=== PATIENT | male | born 1950 | race Caucasian/White ===

== ENCOUNTER 2023-07-25 11:32 | Observation (INO) ==
--- NOTE | 2023-07-25 07:30 | History & Physical Report ---
Date of Service July 25, 2023 Assessment & Plan (1) CAD (coronary artery disease): Plan: Patient has known severe multivessel coronary artery disease now with accelerating angina, worsening LV dysfunction. Plan to proceed with left and right heart catheterization. Further recommendations pending findings. History of Present Illness Primary Care Provider: Makenna Paula DO Mr. Aldana is a very pleasant 73-year-old man with a history of multivessel CAD, ischemic cardiomyopathy, prior VT post single-chamber ICD here today for left and right heart catheterization. Patient has had progressive chest pain consistent with prior angina over the preceding weeks to months. Describes limiting shortness of breath/chest pain if attempts to carry anything, gives the [place] Has been taking multiple nitroglycerin a day. Denies new lower extremity edema, orthopnea. Cardiac cath 04/2022: 50% dLMCA, 90% pLAD, 100% mLAD WIRE STITCHER MACHINE with L-L collaterals. 95% ostial LCx, patent proximal LCx stent. 100% pRCA WIRE STITCHER MACHINE. Echo 05/2022: EF 25-30%, moderate-severely dilated. Mild MR. Repeat echo yesterday showed EF 15 to 20% with akinesis of inferoseptum/inferior wall/inferolateral wall. Had mild to moderate MR. Normal estimated RA/PA Allergies Allergy/AdvReac Type Severity Reaction Status Date / Time No Known Allergies Allergy Unverified 03/24/19 11:54 Home Medications Medication Instructions Recorded Confirmed Type aspirin 325 mg tablet 324 mg PO DAILY 03/24/19 03/24/19 History atorvastatin 20 mg tablet (Lipitor) 20 mg PO DAILY 03/24/19 03/24/19 History bupropion HCl 150 mg tablet,12 hr 150 mg PO DAILY 03/24/19 03/24/19 History sustained-release (Wellbutrin SR) metformin 1 tab PO DAILY 03/24/19 03/24/19 History metoprolol succinate 25 mg 25 mg PO DAILY 03/24/19 03/24/19 History tablet,extended release 24 hr (Toprol XL) Past Med/Surg History Medical History ICD (implantable cardioverter-defibrillator), single, in situ CAD (coronary artery disease) Ischemic cardiomyopathy Ventricular tachycardia Social History Smoking Status: Former smoker Hx Alcohol Use: No Hx Substance Use: No 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 Required: No Beliefs That Will Affect Care: None Current Living Situation: Spouse Feels Safe at Home: Yes Review of Systems All systems reviewed & are unremarkable except as noted in HPI & below Physical Exam Physical Exam: General: Comfortable HEENT: Sclerae anicteric Lungs: Clear to auscultation bilaterally, no crackles or wheezes Cardiac: Regular rate and rhythm, 2 out of 6 holosystolic murmur at the apex Vascular: 2+ right radial Abdomen: Soft, nontender Extremities: Well perfused, no peripheral edema Neuro: Nonfocal Psych: Alert orient x3, normal affect and mood ASA Classification ASA ASA3
--- NOTE | 2023-07-25 12:07 | Pre Anesthesia Assessment ---
Date of Service July 25, 2023 Pre Sedation Assessment Cardiovascular + regular rate Respiratory + respiratory effort normal Pre-Sedation Airway Assessment Smoking Status: Former smoker Hx Sleep Apnea: No Hx Difficult Intubation: No Thyromental Distance: > or= 3.5 Finger Breadths Oral Cavity: + Dental Abnormalities Mallampati Class: III ASA: ASA3 Procedure Planning Contraindications for Sedation: none Current Medications Reviewed: Yes Notes The planned sedation has been discussed with the patient. Informed Consent was obtained. I have identified the patient, determined the appropriateness of sedation and have assessed the patient immediately prior to the procedure. All medicine(s) and interventions are by my order.
[2023-07-25] MEDS: fentaNYL citrate PF 100 MCG/2 ML VIAL ONE (13:51)
[2023-07-25] MEDS: HEPARIN (PORCINE) 1000 UNIT/ML 10 ML (CATH LAB USE ONLY) ONE (13:51)
[2023-07-25] MEDS: IODIXANOL (VISIPAQUE) 320 MG/ML 100ML IV ONE (13:52)
[2023-07-25] MEDS: niCARdipine HCL INJ 2.5 MG/ML 10 ML AMP ONE (13:52)
[2023-07-25] MEDS: NITROGLYCERIN/D5W 100MCG/ML 20ML SYR ONE (13:52)
[2023-07-25] MEDS: MIDAZOLAM HCL 1 MG/ML 2ML VIAL ONE (13:52)
--- NOTE | 2023-07-25 13:57 | Post Anesthesia Assessment ---
Date of Service July 25, 2023 Post Sedation Assessment Vital Signs Pulse Resp BP Pulse Ox O2 Del Method 07/25/23 11:53 83 18 173/93 H 98 Room Air Recovery Score Activity: Moves 4 extremities Respiration: Deep Breath/Cough Circulation: +/-20% PreAnes Value Consciousness: Fully Awake Oxygen Saturation: O2 needed for >90% Discharge Sedation Level of Care: Fast Track Phase II Post Sedation Plan On clinical assessment, the patient appears to have tolerated the sedation without complications. Patient is recovering as anticipated. Patient will continue to be monitored by nursing and may be discharged when sed ation discharge criteria are met per below protocol. Upon Completions of procedure up to 15 minutes continue every 5 minute vital signs and the P.A.R. score; then discharge to a Phase I or Fast Track to Phase II per the following guidelines: * Discharge Patient to appropriate Phase II area if PAR is 8 or greater or return to pre- procedure baseline. The post - procedure orders will be as directed. * If PAR score is less than 8 or not return to pre-procedure baseline then patient will follow Phase I monitoring till PAR is reached for Phase II. The Phase I may be done in procedure room or may call to secure a Phase I area. * If naloxone or flumazenil are used for reversal, hold in Phase I for continued monitoring from when last reversal dose was given for a minimum of 60 minutes or longer pending the nurse and/or physician discretion of patient condition before discharge to Phase II. Please call the Sedation Physician to re-evaluate and complete post-note for discharge to Phase II area. Do NOT discharge from procedure sedation or Phase 1 until post- sedation evaluation note is complete by procedure /sedation MD Sedation Discharge Instructions to be given to the patient at discharge to home.
[2023-07-25] MEDS ORDERED: ONDANSETRON INJ 2 MG/ML 2 ML VIAL IV PRN (13:58)
[2023-07-25] MEDS ORDERED: NITROGLYCERIN SL 0.4 MG/TAB TAB SL PRN ×2 (13:58→14:05)
[2023-07-25] MEDS ORDERED: ACETAMINOPHEN 325 MG TAB PO PRN (13:58)
[2023-07-25 14:05] LABS: iSTAT Arterial Blood Gas HCO3 27 meg/L (19-24); iSTAT Arterial Blood Gas pCO2 43 mmHg (35-46); iSTAT Arterial Blood Gas pO2 46 mmHg (80-95); iSTAT Carbon Dioxide 28 mmol/L (24-31); iSTAT Hematocrit 47 % (42-52); iSTAT Potassium 3.3 mmol/L (3.3-5.0); iSTAT Sodium 144 mmol/L (135-144)
[2023-07-25] MEDS ORDERED: GLUCOSE 40% GEL 15 GM TUBE PO PRN (14:09)
[2023-07-25] MEDS ORDERED: DEXTROSE 50% 50 ML SYRINGE IV PRN (14:09)
[2023-07-25] MEDS ORDERED: GLUCOSE 10 TAB/TUBE PO PRN (14:09)
[2023-07-25] MEDS ORDERED: CARBOHYDRATES FOR HYPOGLYCEMIA PO PRN (14:09)
[2023-07-25] MEDS ORDERED: PHARMACY GLYCEMIC MGMT CONSULT PRN (14:09)
[2023-07-25] MEDS ORDERED: GLUCAGON FOR INJ 1 MG VIAL SQ PRN (14:09)
--- NOTE | 2023-07-25 14:15 | Post Operative Brief Note ---
Cardiology Brief Post Op Date of Surgery July 25, 2023 Pre & Post Diagnosis Multivessel CAD, cardiomyopathy Procedure Cardiac catheterization PCI of mid LAD with single JAMES (3.0 x 26 mm [place]) and shockwave intravascular lithotripsy Carpenter Helper Madi Liriano MD Class C Driver Showers Estimated Blood Loss 15 Findings See Below 25% distal left main 80% calcified mid LAD. Distal LAD chronically occluded with faint left to left collaterals. Ramus 80% ostial 100% proximal RCA INSTRUCTOR TECHNICAL TRAINING with faint left-right collaterals. Normal left and right-sided filling pressures. Anesthesia Type RN Sedation Complications none Disposition Disposition: PCU
[2023-07-25] MEDS: SODIUM CHLORIDE 0.9% 1,000 ML IV SCH (15:30)
[2023-07-25 15:50] LABS: iSTAT Arterial Blood Gas HCO3 28 meg/L (19-24); iSTAT Arterial Blood Gas pCO2 44 mmHg (35-46); iSTAT Arterial Blood Gas pH 7.41 (7.35-7.45); iSTAT Arterial Blood Gas pO2 < 32 mmHg (80-95); iSTAT Carbon Dioxide 29 mmol/L (24-31); iSTAT Hematocrit 46 % (42-52); iSTAT Hemoglobin 15.6 g/dl (14.0-18.0); iSTAT Potassium 3.3 mmol/L (3.3-5.0); iSTAT Sodium 143 mmol/L (135-144)
--- NOTE | 2023-07-25 19:30 | Cardiac Catheterization ---
[facility] Data: Margin Trimmer Cardiac Status Clinical evaluation leading to the procedure CAD Presenation: Unstable angina Anginal Classification: CCS III Diagnostic Physicians Name: Madi Liriano MD Closure Device Recommendations: PCI without planned CABG Cardiac Cath Procedure Full Procedure Date July 25, 2023 Pre-Procedure Diagnosis Pre-Procedure Diagnosis: CAD and Cardiomyopathy AUC Score AUC Score: 7 Post-Procedure Diagnosis Post-Procedure Diagnosis: Severe CAD, Successful PCI and Normal Intracardiac Pressures Procedure(s) Performed Procedure(s) Performed: Coronary Angiography, Left Heart Cath, Right Heart Cath and Drug Eluting Stent Synthetic Soil Blocks Pulper Madi Liriano MD Finish Remover(s) Showers Estimated Blood Loss Estimated Blood Loss: 20 Medication(s) Medication(s): Fentanyl, Heparin, Lidocaine 1%, Nicardipine, Nitroglycerin and Versed Summary of Findings Indication: Accelerating angina, worsened LV dysfunction. History of multivessel CAD Access: 6 Fr right radial artery Catheters: 6 Fr right radial artery, 6 Fr right antecubital vein Findings: LM -medium caliber, 20 to 30% distal stenosis LAD -medium caliber, heavily calcified, 40% proximal stenosis, 80 to 90% mid segment stenosis. 100% distal chronic total occlusion at takeoff of small D3. Apical vessel fills partially via left to left collaterals. Medium high D1 with 80% ostial stenosis. Bifurcating D2 with severe mid segment. Circumflex -small caliber, 50% ostial RCA -100% proximal chronic total occlusion. Right PLB fills retrograde via left to right collaterals from circumflex RA 5 RV 24/6 PA 22/13 (15) PAWP 6 LVEDP 18 PaSat 51% AoSat 82% Omar CO/CI 4.5/2.3 Thermo CO/CI 3.4/1.7 -- PCI -- Antithrombotic therapy: Heparin, clopidogrel Procedure: Left main cannulated with EBU 3.5 guide Pre-procedure flow ALFREDA 3 BMW wire passed across lesion into distal vessel Mid LAD lesion predilated with 2.5 compliant balloon Mid LAD further expanded with shockwave intravascular lithotripsy (3.0 balloon, 60 pulses) Dilated lesion stented with 3.0 x 26 mm Raymond drug-eluting stent Stent post-dilated with stent balloon IC vasodilators administered for spasm Post procedure ALFREDA 3 flow, stent well expanded with minimal residual stenosis and no apparent cardiac complications. Arterial Closure: TR band Summary: 1. Severe multivessel coronary artery disease -80 to 90% mid LAD. 100% distal LAD DRY CLIPPER TENDER. 80% ostial D1 50% ostial circumflex 100% proximal RCA DRY CLIPPER TENDER 25% distal LMCA 2. Normal left and right-sided filling pressures 3. Preserved cardiac output 4. Normal pulmonary artery pressure 5. Successful PCI of mid LAD with with intravascular lithotripsy and single drug-eluting stent (3.0 x 26 mm David). Recommendations: To PCU for continued monitoring Continue long-term DAPT with aspirin, ticagrelor Optimize GDMT for ischemic cardiomyopathy New LBBB on ECG, TERRAPIN FISHER discussed with Dr. Calderon Hemodynamics Rest Ao:: 117/65/97 Final Ao: 123/69/91 LV: 117/18 Recommendations Recommendations: PCI without planned CABG Specimens Specimens: None Radiation Exposure (mGy) 2506 Contrast (mls) 120 Anesthesia Moderate [id number] Procedural Complication(s) None Disposition PCU I attest to the content of the Intraoperative Record and any orders documented therein. Any exceptions are noted below. [facility] Card Cath Procedure Codes Cardiac Catheterization Procedure 1: Cardiovascular Cath Procedures: 41373 Coronaries & LHC (+/-LV) & RHC Moderate Sedation Procedure 1: Sedation/Anesthesia: 34107 Mod Sedation by the same physician;Init15 Min Child Age 5 & Up Procedure 2: Sedation/Anesthesia: 68094 Mod Sedation by the same physician; Ea [id number] Minutes Stenting Procedure 1: Cardiovascular Stent Procedures: 79607 Perc transcatheter placement of intracoronary stent(s), with ang PG Care Time/CCT Total # of Minutes Spent Total Time Spent with Patient: Total time spent is greater than 50% in coordination of care (as documented) at patient's floor/unit and/or counseling patient:
[2023-07-25] MEDS: INSULIN ASPART PER UNIT CHARGE SC SCH (19:35)
[2023-07-25] MEDS: LANTUS PER UNIT CHARGE SC SCH (22:14)
[2023-07-25] MEDS: TICAGRELOR 90 MG TAB PO SCH (23:00)
--- NOTE | 2023-07-26 05:43 | Electrocardiogram Report ---
Test Reason : Blood Pressure : / mmHG Vent. Rate : 082 BPM Atrial Rate : 082 BPM P-R Int : 212 ms QRS Dur : 196 ms QT Int : 488 ms P-R-T Axes : 070 -23 195 degrees QTc Int : 570 ms Sinus rhythm with 1st degree A-V block Left bundle branch block Abnormal ECG No previous ECGs available Confirmed by Bryson Beltran ([id number]) on 07/26/2023 5:43:11 AM Referred By: Ananth Calderon Confirmed By:Bryson Beltran
--- NOTE | 2023-07-26 05:44 | Electrocardiogram Report ---
Test Reason : Blood Pressure : / mmHG Vent. Rate : 070 BPM Atrial Rate : 070 BPM P-R Int : 208 ms QRS Dur : 206 ms QT Int : 518 ms P-R-T Axes : 037 -25 167 degrees QTc Int : 559 ms Sinus rhythm with 1st degree A-V block Left bundle branch block Abnormal ECG When compared with ECG of 25-JUL-2023 12:04, No significant change was found Confirmed by Bryson Beltran ([id number]) on 07/26/2023 5:43:58 AM Referred By: Ananth Calderon Confirmed By:Bryson Beltran
[2023-07-26 08:15] LABS: Basophils # (auto) 0.08 K/uL (0.00-0.20); Basophils % (auto) 0.9 %; Eosinophils % (auto) 5.5 %; Hematocrit (blood only) 46.5 % (42.0-52.0); Hemoglobin 14.8 g/dl (14.0-18.0); Immature Granulocytes # (auto) 0.03 K/uL (0.01-0.20); Immature Granulocytes % (auto) 0.3 %; Lymphocytes # (auto) 1.45 K/uL (1.20-3.40); Mean Corpuscular Hemoglobin 29.2 pg (25.0-34.0); Mean Corpuscular Hgb Conc 31.8 g/dL (32.0-36.0); Mean Corpuscular Volume 91.7 fL (80.0-100.0); Mean Platelet Volume 11.3 fL (9.4-12.4); Monocytes # (auto) 0.87 K/uL (0.11-0.59); Monocytes % (auto) 9.6 %; Neutrophils # (auto) 6.16 K/uL (1.40-6.50); Neutrophils % (auto) 67.7 %; Platelet Count 219 K/uL (130-400); RDW Coefficient of Variation 14.4 % (11.5-14.5); RDW Standard Deviation 47.8 fL (36.4-46.3); Red Blood Count 5.07 M/uL (4.70-6.10); White Blood Count 9.09 K/ul (4.8-10.8)
[2023-07-26 08:30] LABS: BUN Creatinine Ratio 17.9 (10-20); Calcium 9.2 mg/dl (8.6-10.3); Creatinine Clr Calc Pharmacy 52.7 ml/min; Est GFR (African American) 60.1 ml/min; Est GFR (Non-African American) 51.8 ml/min; Potassium 3.6 mmol/L (3.5-5.1)
[2023-07-26] MEDS ORDERED: METOPROLOL SUCC 50MG EXT REL TAB PO SCH (09:00)
[2023-07-26] MEDS ORDERED: METOPROLOL SUCC 25MG EXT REL TAB PO SCH (09:00)
[2023-07-26] MEDS ORDERED: EMPAGLIFLOZIN 25 MG TAB PO SCH (09:00)
[2023-07-26] MEDS: CHOLECALCIFEROL 25 MCG (1000 UNITS) TAB PO SCH (09:18)
[2023-07-26] MEDS: ATORVASTATIN 40 MG TAB PO SCH (09:18)
[2023-07-26] MEDS: carvediloL 3.125 MG TAB PO SCH (09:18)
[2023-07-26] MEDS: ASPIRIN 81 MG CHEW PO SCH (09:22)
[2023-07-26] MEDS: LACTATED RINGER'S 1,000 ML IV SCH (09:32)
--- NOTE | 2023-07-26 10:46 | Pharmacy Report ---
Pharmacy Glycemic Short Note 2 - Date of Service July 26, 2023 - Glycemic Short BSG Results (Last 24 hours): 07/25/23 07/25/23 07/26/23 16:33 20:12 06:59 Glucose 118 H POC Glucose 141 H 134 H 07/26/23 07:17 Glucose POC Glucose 118 H OUTPATIENT ANTIDIABETIC REGIMEN: * Jardiance 25 mg daily, aspart 20 units bid, glargine 20 units bid ASSESSMENT: * 73 year old admitted with progressive chest pain. S/p slabber light yesterday for right heart catheterization. Pharmacy consulted for glycemic management. Patient NPO this AM for EP lab. Received total of 12 units of insulin yesterday, of which 10 units were basal insulin * Fasting BSG 118 mg/dL - reasonable to hold AM basal for NPO status, will resume basal at HS with scale as likely diet will be resumed later today PLAN FOR INPATIENT GLYCEMIC CONTROL: * Hold outpatient oral diabetes medications * Basal insulin * Lantus 10-15 units hs * Bolus insulin * NovoLog per scale ACHS or Q6hrs while NPO * Goal Range: Low 110 mg/dL - High 140 mg/dL * Correction Factor: 30 mg/dL/unit * Nutritional / Prandial insulin per carb ratio of 1 unit per 10 grams CHO consumed
--- NOTE | 2023-07-26 11:14 | Cardiology Progress Note ---
Date of Service July 26, 2023 Assessment & Plan (1) ICD (implantable cardioverter-defibrillator), single, in situ: (2) CAD (coronary artery disease): (3) Ischemic cardiomyopathy: Plan 1. Single-chamber ICD: His ICD was interrogated last evening, he has had no significant ventricular arrhythmia and required no recent therapy. Several very brief episodes of atrial fibrillation were identified. The pacing threshold is acceptable although gradually rising. 2. Coronary disease: He does have severe coronary disease, hopefully the vessel that was dilated yesterday was the culprit for his increased angina recently. He has not been active enough to tell at this point. 3. Ischemic cardiomyopathy: His left ventricular function is severely reduced, I am hopeful that it is not all an ischemic cardiomyopathy and some of it is nonischemic related to his left bundle branch block. We will plan upgrade of his single-chamber ICD to a biventricular ICD today, that will entail adding an atrial and left ventricular lead and using his current ICD lead. I will check his electrical characteristics during surgery but I am reluctant to add another ICD lead even though the pacing threshold is increased slightly.. I reviewed the indications, procedure, risks and alternatives with the patient, and answered all questions. He understands and agrees to the procedure. Consent obtained. I also reviewed the risks and use of sedation, he understands and consent obtained. Admission and Anticipated Discharge Date Admission Date: July 25, 2023 Subjective He is feeling very well since his catheterization yesterday, he has not been very active but feels that his symptoms have improved somewhat even at rest. He has no discomfort at his right wrist catheterization site. He has had no chest discomfort. Physical Exam Physical Exam: Constitutional: Alert, cooperative and in no distress. HEENT: Unremarkable Neck: No jugular venous distention, carotid pulses are normal and equal bilaterally without bruits. Pulmonary: Clear to auscultation bilaterally. Cardiac: Regular rhythm with no murmur, gallop or rub. Abdomen: Soft, nontender with normal bowel sounds. Extremities: No edema. Distal pulses intact. His right wrist catheterization site is slightly ecchymotic but with good pulses and no swelling. Neurologic: No focal findings. Gait is steady. Skin: No rash, ecchymoses or petechiae. Results & Data Vital Signs (Past 12 Hours) Vital Signs Temp Pulse Pulse Resp BP Pulse Ox O2 Del Method 07/26/23 08:00 80 07/26/23 07:13 36.8 C 75 18 121/76 93 Room Air 07/26/23 04:33 94 Room Air 07/26/23 02:32 36.7 C 79 20 125/72 91 Room Air Laboratory Results CBC 07/26/23 Range/Units 06:59 WBC 9.09 (4.8-10.8) K/ul RBC 5.07 (4.70-6.10) M/uL Hgb 14.8 (14.0-18.0) g/dl Hct 46.5 (42.0-52.0) % Plt Count 219 (130-400) K/uL Neut # (Auto) 6.16 (1.40-6.50) K/uL Lymph # (Auto) 1.45 (1.20-3.40) K/uL [place] # (Auto) 0.87 H (0.11-0.59) K/uL Eos # (Auto) 0.50 (0.00-0.50) K/uL Baso # (Auto) 0.08 (0.00-0.20) K/uL Comprehensive Metabolic Panel 07/26/23 Range/Units 06:59 Sodium 141 (136-145) mmol/L Potassium 3.6 (3.5-5.1) mmol/L Chloride 107 (98-107) mmol/L Carbon Dioxide 26 (21-32) mmol/L BUN 24 H (6-23) mg/dl Creatinine 1.34 (0.6-1.4) mg/dl Glucose 118 H (70-99(Fasting)) mg/dl Calcium 9.2 (8.6-10.3) mg/dl Intake and Output 07/25/23 07/26/23 07/26/23 22:59 06:59 14:59 Intake Total 275 / 525 250 / 525 Balance 275 / 525 250 / 525 Intake: IV 250 / 250 Sodium Chloride 0.9% 1,000 ml @ 250 / 250 75 mls/hr IV .[id number] [facility] Rx#: [id number] Oral 275 / 275 PG Care Time/CCT Total # of Minutes Spent Total Time Spent with Patient: Total time spent is greater than 50% in coordination of care (as documented) at patient's floor/unit and/or counseling patient: Coding Level of Care Code 27737 SUB INP/OBS CARE MIN Diagnoses ICD (implantable cardioverter-defibrillator), single, in situ Z95.810 Coronary artery disease involving [place] coronary artery of [place] heart without angina pectoris I25.10 Coronary Disease-Associated Artery/Lesion type: [place] artery [place] vs. transplanted heart: [place] heart Associated angina: without angina Ischemic cardiomyopathy I25.5 (2) CAD (coronary artery disease) Coronary Disease-Associated Artery/Lesion type: [place] artery [place] vs. transplanted heart: [place] heart Associated angina: without angina Qualified Code(s): I25.10 - Atherosclerotic heart disease of [place] coronary artery without angina pectoris
--- NOTE | 2023-07-26 13:07 | Pre Anesthesia Assessment ---
Date of Service July 26, 2023 Pre Sedation Assessment Vital Signs Temp Pulse Pulse Resp BP Pulse Ox O2 Del Method 07/26/23 12:21 70 18 113/69 93 Room Air 07/26/23 11:36 36.6 C 62 18 113/60 94 Room Air 07/26/23 08:00 80 07/26/23 07:13 36.8 C 75 18 121/76 93 Room Air 07/26/23 04:33 94 Room Air 07/26/23 02:32 36.7 C 79 20 125/72 91 Room Air 07/25/23 23:06 36.5 C 80 20 123/78 93 Room Air 07/25/23 22:21 73 07/25/23 19:36 36.6 C 82 20 138/93 96 Room Air 07/25/23 17:31 79 133/85 97 Room Air 07/25/23 17:16 68 114/76 97 Room Air 07/25/23 17:01 78 18 130/85 94 Room Air 07/25/23 16:46 148/90 H 07/25/23 16:32 76 17 117/80 96 Room Air 07/25/23 16:16 70 18 118/74 95 Room Air 07/25/23 15:35 77 20 130/81 95 Room Air 07/25/23 15:20 72 20 128/89 95 Room Air 07/25/23 15:05 71 18 128/79 95 Room Air 07/25/23 14:50 69 18 124/71 95 Room Air 07/25/23 14:35 68 18 128/83 93 Room Air 07/25/23 14:20 71 18 135/79 93 Room Air 07/25/23 14:05 71 18 91/78 L 93 Room Air Cardiovascular RRR, no murmur, no edema Respiratory normal respiratory effort, lungs clear to auscultation Pre-Sedation Airway Assessment Smoking Status: Former smoker Hx Sleep Apnea: No Hx Difficult Intubation: No Short, Thick Neck: No Thyromental Distance: > or= 3.5 Finger Breadths Oral Cavity: + WNL Mallampati Class: III ASA: ASA3 NPO Status Date of Last Intake of Fluids: 07/26/23 Time of Last Intake of Fluids: 08:00 Date of Last Intake of Solid Food: 07/25/23 Time of Last Intake of Solid Foods: 20:00 Procedure Planning Contraindications for Sedation: none Current Medications Reviewed: Yes Notes The planned sedation has been discussed with the patient. Informed Consent was obtained. I have identified the patient, determined the appropriateness of sedation and have assessed the patient immediately prior to the procedure. All medicine(s) and interventions are by my order.
[2023-07-26] MEDS: VANCOMYCIN HCL 1000MG/20ML VIAL ONE (15:30)
[2023-07-26] MEDS: LIDOCAINE 1% LOCAL 20 ML VIAL ONE (15:30)
[2023-07-26] MEDS: ceFAZolin 330 MG/ML 1 GM VIAL ONE (15:30)
[2023-07-26] MEDS: WATER, STERILE FOR INJ 10 ML VIAL ONE (15:31)
[2023-07-26] MEDS: MIDAZOLAM HCL 5 MG/ML 1 ML VIAL ONE (15:32)
[2023-07-26] MEDS: fentaNYL citrate PF 100 MCG/2 ML VIAL ONE (15:32)
[2023-07-26] MEDS ORDERED: KETOROLAC TROMETHAMINE 10 MG TABLET PO PRN (16:01)
--- NOTE | 2023-07-26 16:26 | Electrophysiology Report ---
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 After identification in the laboratory the patient was prepped and draped in the standard sterile manner for a left-sided ICD upgrade. Dye was injected in the left arm IV site to opacify the left subclavian vein. The subclavian vein was identified and found to be free of obstruction. The left prepectoral region was anesthetized with 1% lidocaine local anesthetic and left axillary venipuncture was performed by percutaneous technique and a guidewire placed through the left subclavian vein into the superior vena cava. A small skin incision was made through the old implant scar and carried down to the pectoralis fascia. An 8.5 [place] Med[employer] lead introducer was placed over the guidewire into the left subclavian vein, the dilator and guidewire were removed and a bipolar activ e fixation steroid tipped atrial lead was advanced through the introducer into the superior vena cava. A guidewire was placed back through the introducer and the introducer was stripped from the lead and guidewire. A Robson coronary sinus sheath was advanced over the guidewire into the right atrium, using x-ray dye and an inner cannula the coronary sinus was identified and a guidewire was placed through the sheath system into the coronary sinus. The sheath system was advanced into the coronary sinus, the balloon was inflated and the dye was injected to opacify the coronary sinus in various projections. There was a good vessel and a low-lying position which seem to be the best option. Using a stylette driven approach a quadripolar coronary sinus lead was advanced through the vessel and good distal position. Once in position pacing threshold was evaluated in various configuration as noted on implant data sheet. Once the coronary sinus lead was in position the atrial lead was positioned in the right atrial appendage using an atrial J stylette. Using a curved stylette the atrial lead was positioned in the region of the atrial appendage and the screw extended fixing the lead in position. Pacing and sensing thresholds were evaluated in bipolar configuration and are recorded on the implant data sheet. Diaphragmatic pacing was evaluated at full output and is noted on the data s heet. Once the atrial lead was in position the atrial and coronary sinus leads were attached to the anterior pectoral fascia using 2 sutures of 2-0 silk around the lead collar. The incision was then expanded through the old implant scar and carried down to the ICD which was explanted and removed from the leads which were connected to an external pacing system. A vancomycin-soaked sponge was placed in the pocket. Pacing and sensing characteristics were evaluated for the ventricular lead as noted on the implant data sheet. A new ICD was attached to the chronic ventricular lead and the new atrial and coronary sinus leads and found to be functioning normally. The vancomycin soaked sponge was removed from the pocket, the ICD was placed in the pocket with the leads coiled beneath it. The incision was closed with a running double subcutaneous closure of 3-0 Vicryl absorbable suture followed by a running subcuticular skin closure of 4-0 Vicryl absorbable suture. Bacitracin ointment was placed on the incision and a dressing applied. [facility] [place] Electrophysiology codes Indication for Procedure (1) ICD (implantable cardioverter-defibrillator), single, in situ: (2) Ischemic cardiomyopathy: (3) Congestive heart failure with left ventricular dysfunction: (4) LBBB (left bundle branch block): Pacing Procedure 1: Pacin BiV electrode w/Pacer / ICD implant, add on code Procedure 2: Pacin Insert permanent lead, single ICD Procedure 1: ICD: 78842 Single or dual ICD implant, chronic leads Miscellaneous Procedures Procedure 1: EP Miscellaneous: 65807 Contrast injection for venography Procedure 2: EP Miscellaneous: 52299-88 Vengraphy, extremity Procedure 3: EP Miscellaneous: 56299-50 Venography, CS supevsion/interp PG Moderate Sedation Codes Moderate Sedation Codes Procedure 1: Sedation/Anesthesia: 26346 Mod Sedation by the same physician;Init15 Min Child Age 5 & Up Procedure 2: Sedation/Anesthesia: 28041 Mod Sedation by the same physician; Ea [id number] Minutes
--- NOTE | 2023-07-26 16:37 | Post Anesthesia Assessment ---
Date of Service July 26, 2023 Post Sedation Assessment Vital Signs Temp Pulse Pulse Resp BP Pulse Ox O2 Del Method 07/26/23 16:00 68 18 157/96 H 90 Room Air 07/26/23 15:40 80 18 171/90 H 90 Room Air 07/26/23 12:21 70 18 113/69 93 Room Air 07/26/23 11:36 36.6 C 62 18 113/60 94 Room Air 07/26/23 08:00 80 07/26/23 07:13 36.8 C 75 18 121/76 93 Room Air 07/26/23 04:33 94 Room Air 07/26/23 02:32 36.7 C 79 20 125/72 91 Room Air 07/25/23 23:06 36.5 C 80 20 123/78 93 Room Air 07/25/23 22:21 73 07/25/23 19:36 36.6 C 82 20 138/93 96 Room Air 07/25/23 17:31 79 133/85 97 Room Air 07/25/23 17:16 68 114/76 97 Room Air 07/25/23 17:01 78 18 130/85 94 Room Air 07/25/23 16:46 148/90 H Recovery Score Activity: Moves 4 extremities Respiration: Deep Breath/Cough Circulation: +/-20% PreAnes Value Consciousness: Fully Awake Oxygen Saturation: > 92% On Room Air Post Anesthesia Score: 10 Discharge Sedation Level of Care: Fast Track Phase II Post Sedation Plan On clinical assessment, the patient appears to have tolerated the sedation without complications. Patient is recovering as anticipated. Patient will continue to be monitored by nursing and may be discharged when sedation discharge criteria are met per below protocol. Upon Completions of procedure up to 15 minutes continue every 5 minute vital signs and the P.A.R. score; then discharge to a Phase I or Fast Track to Phase II per the following guidelines: * Discharge Patient to appropriate Phase II area if PAR is 8 or greater or return to pre- procedure baseline. The post - procedure orders will be as directed. * If PAR score is less than 8 or not return to pre-procedure baseline then patient will follow Phase I monitoring till PAR is reached for Phase II. The Phase I may be done in procedure room or may call to secure a Phase I area. * If naloxone or flumazenil are used for reversal, hold in Phase I for continued monitoring from when last reversal dose was given for a minimum of 60 minutes or longer pending the nurse and/or physician discretion of patient condition before discharge to Phase II. Please call the Sedation Physician to re-evaluate and complete post-note for discharge to Phase II area. Do NOT discharge from procedure sedation or Phase 1 until post- sedation evaluation note is complete by procedure /sedation MD Sedation Discharge Instructions to be given to the patient at discharge to home.
[2023-07-26] MEDS: carvediloL 6.25 MG TAB PO SCH (17:45)
[2023-07-26] MEDS: ceFAZolin 330 MG/ML 1 GM VIAL IV SCH (21:11)
[2023-07-26] MEDS: LANTUS PER UNIT CHARGE SC SCH (21:20)
--- NOTE | 2023-07-27 07:39 | XRay Report ---
XR chest 2V PA/lateral HISTORY: 73 years-old Male EXACT TIME ORDERED Evaluate for pneumothorax and l status post placement of a left subclavian pacer/ICD COMPARISON: None TECHNIQUE: PA and lateral views of the chest FINDINGS: Cardiac silhouette is mildly enlarged. Status post placement of a left subclavian pacer/AICD. No post procedural pneumothorax identified. No pleural effusion, airspace consolidation or pulmonary edema. B ones appear grossly intact. Numerous surgical clips project over the neck soft tissues. IMPRESSION: Status post placement of a left subclavian pacer/AICD. No post pneumothorax identif ied. ACT 112: Negative or not required by law. The above report was generated using voice recognition software. It may contain grammatical, syntax o r spelling errors. Electronically signed by: Yaniv Cabrera M.D. 07/27/2023 7:38 AM
--- NOTE | 2023-07-27 09:33 | Cardiology Progress Note ---
Date of Service July 27, 2023 Assessment & Plan (1) Status post implantation of automatic cardioverter/defibrillator (AICD): (2) CAD (coronary artery disease): (3) Ischemic cardiomyopathy: (4) Chronic kidney disease: Plan 1. Biventricular ICD: His ICD is functioning very well, leads are in good position on the chest x-ray. His implant site is notable for a hematoma (which is not surprising given his aspirin and Brilinta but that is required for his recent stent). He has no pneumothorax. 2. Coronary disease: He does have severe coronary disease, hopefully the vessel that was dilated this admission was the culprit for his increased angina recently. He has not been active enough to tell at this point but he has not had angina. 3. Ischemic cardiomyopathy: His left ventricular function is severely reduced, I am hopeful that it is not all an ischemic cardiomyopathy and some of it is nonischemic related to his left bundle branch block. We had excellent electrical parameters at implant and his postop electrocardiogram shows excellent improvement in his electrical synchronization. I am hopeful that his left ventricular function will improve and that he will have an immediate beneficial response to his hemodynamics. 4. Chronic kidney disease: His creatinine is relatively stable at just above normal despite dye load on 2 occasions. Initiation of Entresto and spironolactone should be safe. We will follow-up with laboratory studies in 1 week. Admission and Anticipated Discharge Date Admission Date: July 25, 2023 Subjective He is feeling quite well postoperatively, mild incisional discomfort, no other chest discomfort and no shortness of breath. He has not been out of bed very much. Physical Exam Physical Exam: Constitutional: Alert, cooperative and in no distress. HEENT: Unremarkable Neck: No jugular venous distention, carotid pulses are normal and equal bilaterally without bruits. Pulmonary: Clear to auscultation bilaterally. Cardiac: Regular rhythm with no murmur, gallop or rub. Abdomen: Soft, nontender with normal bowel sounds. Extremities: No edema. Distal pulses intact. His right wrist catheterization site is slightly ecchymotic but with good pulses and no swelling. Neurologic: No focal findings. Gait is steady. Skin: No rash or petechiae. The ICD site in the left prepectoral region is somewhat swollen with blood in the pocket, minor ecchymosis, the incision site is clean and dry with no drainage or erythema. Results & Data Vital Signs (Past 12 Hours) Vital Signs Temp Pulse Pulse Resp BP Pulse Ox O2 Del Method 07/27/23 07:18 37.1 C 75 18 135/74 93 Room Air 07/27/23 03:32 36.7 C 87 122/73 92 Room Air 07/27/23 00:47 36.6 C 72 18 121/72 97 Room Air 07/26/23 23:02 76 Laboratory Results Comprehensive Metabolic Panel 07/27/23 Range/Units 09:28 Sodium 136 (136-145) mmol/L Potassium 3.8 (3.5-5.1) mmol/L Chloride 105 (98-107) mmol/L Carbon Dioxide 24 (21-32) mmol/L BUN 25 H (6-23) mg/dl Creatinine 1.44 H (0.6-1.4) mg/dl Glucose 204 H (70-99(Fasting)) mg/dl Calcium 8.9 (8.6-10.3) mg/dl Intake and Output 07/26/23 07/27/23 07/27/23 22:59 06:59 14:59 Intake Total 112 / 112 Output Total 750 / 750 Balance -638 / -638 Intake: IV 112 / 112 Lactated Ringer's 1,000 ml @ 15 112 / 112 mls/hr IV .Q24H [facility] Rx#: [id number] Output: Urine 750 / 750 Other: Weight 86 kg Weight Measurement Method Standing Scale Diagnostic Findings Postop ECG: Sinus rhythm with biventricular pacing with excellent electrical morphology Telemetry: Sinus rhythm with ventricular pacing, rare PVCs Chest x-ray: Good lead position, no pneumothorax Biventricular ICD evaluation: Excellent characteristics, excellent function. PG Care Time/CCT Total # of Minutes Spent Total Time Spent with Patient: Total time spent is greater than 50% in coordination of care (as documented) at patient's floor/unit and/or counseling patient: Coding Level of Care Code 93701 Post Operative Follow-Up Diagnoses Status post implantation of automatic cardioverter/defibrillator (AICD) Z95.810 Coronary artery disease involving viejas coronary artery of viejas heart without angina pectoris I25.10 Associated angina: without angina Coronary Disease-Associated Artery/Lesion type: viejas artery [place] vs. transplanted heart: viejas heart Ischemic cardiomyopathy I25.5 Chronic kidney disease N18.9 (2) CAD (coronary artery disease) Associated angina: without angina Coronary Disease-Associated Artery/Lesion type: viejas artery [place] vs. transplanted heart: viejas heart Qualified Code(s): I25.10 - Atherosclerotic heart disease of viejas coronary artery without angina pectoris
[2023-07-27 09:49] LABS: Estimated Average Glucose 177 mg/dl; Hemoglobin A1C 7.8 % (4.5-5.6)
[2023-07-27 09:56] LABS: BUN Creatinine Ratio 17.4 (10-20); Calcium 8.9 mg/dl (8.6-10.3); Est GFR (African American) 55.1 ml/min; Est GFR (Non-African American) 47.5 ml/min; Potassium 3.8 mmol/L (3.5-5.1)
[2023-07-27] MEDS: LANTUS PER UNIT CHARGE SC SCH (10:22)
--- NOTE | 2023-07-27 10:46 | Discharge Summary ---
Date of Service July 27, 2023 Admission HPI Per Admitting Provider Mr. Aldana is a very pleasant 73-year-old man with a history of multivessel CAD, ischemic cardiomyopathy, prior VT post single-chamber ICD here today for left and right heart catheterization. Patient has had progressive chest pain consistent with prior angina over the preceding weeks to months. Describes limiting shortness of breath/chest pain if attempts to carry anything, gives the example [place] Has been taking multiple nitroglycerin a day. Denies new lower extremity edema, orthopnea. Cardiac cath 04/2022: 50% dLMCA, 90% pLAD, 100% mLAD DIRECTOR SOCIAL SERVICE with L-L collaterals. 95% ostial LCx, patent proximal LCx stent. 100% pRCA [employer]OR [employer] SERVICE. Echo 05/2022: EF 25-30%, moderate-severely dilated. Mild MR. Repeat echo yesterday showed EF 15 to 20% with akinesis of inferoseptum/inferior wall/inferolateral wall. Had mild to moderate MR. Normal estimated RA/PA Admission Exam (Per Admitting) Constitutional Constitutional: Alert, cooperative and in no distress. HEENT: Unremarkable Neck: No jugular venous distention, carotid pulses are normal and equal bilaterally without bruits. Pulmonary: Clear to auscultation bilaterally. Cardiac: Regular rhythm with no murmur, gallop or rub. Abdomen: Soft, nontender with normal bowel sounds. Extremities: No edema. Distal pulses intact. Neurologic: No focal findings. Gait is steady. Skin: No rash, ecchymoses or petechiae. Discharge Data Procedures Performed Operation Date: 07/26/23 12:30 Actual Procedures p Upgrade of any system to BIV - Ananth Calderon MD s Angio Subclavian Unilateral - Ananth Calderon MD s ICD Gen Change Multiple - Ananth Calderon MD Hospital Course (1) Status post implantation of automatic cardioverter/defibrillator (AICD): (2) CAD (coronary artery disease): (3) Ischemic cardiomyopathy: (4) Chronic kidney disease: Plan 1. Postop day #1 biventricular ICD: His ICD is functioning very well, leads are in good position on the chest x-ray. His implant site is notable for a hematoma (which is not surprising given his aspirin and Brilinta but that is required for his recent stent). He has no pneumothorax. 2. Coronary disease: He does have severe coronary disease, hopefully the vessel that was dilated this admission was the culprit for his increased angina recently. He has not been active enough to tell at this point but he has not had angina. 3. Ischemic cardiomyopathy: His left ventricular function is severely reduced, I am hopeful that it is not all an ischemic cardiomyopathy and some of it is nonischemic related to his left bundle branch block. We had excellent electrical parameters at implant and his postop electrocardiogram shows excellent improvement in his electrical synchronization. I am hopeful that his left ventricular function will improve and that he will have an immediate beneficial response to his hemodynamics. 4. Chronic kidney disease: His creatinine is relatively stable at just above normal despite dye load on 2 occasions. Initiation of Entresto and spironolactone should be safe. We will follow-up with laboratory studies in 1 week. He is stable for discharge. Coding Level of Care Code None Diagnoses Status post implantation of automatic cardioverter/defibrillator (AICD) Z95.810 Coronary artery disease involving [place] coronary artery of [place] heart without angina pectoris I25.10 Coronary Disease-Associated Artery/Lesion type: [place] artery [place] vs. transplanted heart: [place] heart Associated angina: without angina Ischemic cardiomyopathy I25.5 Chronic kidney disease N18.9
--- NOTE | 2023-07-27 16:01 | Electrocardiogram Report ---
Test Reason : Blood Pressure : / mmHG Vent. Rate : 069 BPM Atrial Rate : 069 BPM P-R Int : 136 ms QRS Dur : 192 ms QT Int : 528 ms P-R-T Axes : 101 252 050 degrees QTc Int : 565 ms Atrial-sensed ventricular-paced rhythm Abnormal ECG When compared with ECG of 25-JUL-2023 14:18, Electronic ventricular pacemaker has replaced Sinus rhythm Confirmed by Ananth Calderon ([id number]) on 07/27/2023 4:00:49 PM Referred By: Ananth Calderon Confirmed By:Ananth Calderon
--- NOTE | 2023-07-30 09:55 | Coding Query ---
CONGESTIVE HEART FAILURE To Promote full compliance with coding requirements relating to patient care, physician participation is requested in all cases of pet counselor uncertainty. Please assist us with the following questions. A diagnosis of Congestive Heart Failure is documented in the patient's medical record. To accurately code this diagnosis and to compare patient severity, we ask that you specify the type of heart failure by placing an X within the parenthesis (x). Class 3 Heart failure was documented in the medical record. Thanks for your help! LIZZIE Montes [facility] SYSTOLIC HEART FAILURE ( ) Acute ( ) Chronic ( ) Acute on Chronic ( ) Rheumatic ( ) Unknown DIASTOLIC HEART FAILURE ( ) Acute ( ) Chronic ( ) Acute on Chronic ( ) Rheumatic ( ) Unknown COMBINED SYSTOLIC AND DIASTOLIC HEART FAILURE ( ) Acute ( ) Chronic ( ) Acute on Chronic ( ) Rheumatic ( ) Unknown Was the CHF Present On Admission? Please check the appropriate box: ( ) Present on Admission ( ) Not Present On Admission ( ) Clinically undetermined MTDD
--- NOTE | 2023-08-01 05:13 | Coding Query ---
CONGESTIVE HEART FAILURE To Promote full compliance with coding requirements relating to patient care, physician participation is requested in all cases of physician specialist uncertainty. Please assist us with the following questions. A diagnosis of Congestive Heart Failure is documented in the patient's medical record. To accurately code this diagnosis and to compare patient severity, we ask that you specify the type of heart failure by placing an X within the parenthesis (x). Class 3 Heart Failure was documented in the medical record. Thanks for your help. LIZZIE Montes [facility] SYSTOLIC HEART FAILURE ( ) Acute (X ) Chronic ( ) Acute on Chronic ( ) Rheumatic ( ) Unknown DIASTOLIC HEART FAILURE ( ) Acute ( ) Chronic ( ) Acute on Chronic ( ) Rheumatic ( ) Unknown COMBINED SYSTOLIC AND DIASTOLIC HEART FAILURE ( ) Acute ( ) Chronic ( ) Acute on Chronic ( ) Rheumatic ( ) Unknown Was the CHF Present On Admission? Please check the appropriate box: ( ) Present on Admission (X ) Not Present On Admission ( ) Clinically undetermined Thank you Chuck MURILLO
== END 2023-07-27 11:44 | disposition home or self-care (01) | DRG 277 ==
LOC: CC 11:32 → INTOOBSV 14:03 → 2S 14:03